=== PATIENT | female | born 1960 | race Caucasian/White ===

== ENCOUNTER → 2016-11-11 | Outpatient (CLI) | payer BC ==
[~2016-11-11] MED LIST: ALLEGRA 180MG180 MG PO; MULTI VITAMINS1 TAB PO; NATURE'S BLE1000 MCG PO; PRAVACHOL 20MG20 MG PO; SINGULAIR 110 MG/TAB PO; SYNTHROID0.075 MG/T PO
== END ==
LOC: COL.RAD 13:21
DX: E04.1 Nontoxic single thyroid nodule (principal)

== ENCOUNTER → 2016-12-03 | Outpatient (CLI) | payer BC ==
[~2016-12-03] VITALS: Ht 162.6 cm; Wt 72.5 kg
[2016-12-03 10:20] VITALS: BP 131/78
[2016-12-03 11:14] VITALS: BP 137/86; PULSE 73
== END ==
LOC: COL.RAD 09:39
DX: E04.1 Nontoxic single thyroid nodule (principal)
CPT/HCPCS: 13756

== ENCOUNTER → 2017-02-17 | Outpatient (CLI) | payer BC | LOC: COL.RAD 12:02 | DX: R42 Dizziness and giddiness (principal); R11.10 Vomiting, unspecified; R49.0 Dysphonia | CPT/HCPCS: A9585 ==

== ENCOUNTER → 2017-03-04 | Outpatient (CLI) | payer BC | LOC: COL.RAD 09:22 | DX: E04.1 Nontoxic single thyroid nodule (principal) ==

== ENCOUNTER → 2017-04-17 | Outpatient (CLI) | payer BC ==
[~2017-04-17] MED LIST changes: +ASPIRIN E.C. 8181 MG PO; +CITRACAL + D CA1 TAB PO; +PROTONIX 40MG T40 MG PO
== END ==
LOC: MC.RAD 16:30
DX: Z12.31 Encounter for screening mammogram for malignant neoplasm of breast (principal)

== ENCOUNTER 2017-04-23 12:00 | Outpatient (CLI) | payer BC ==
[~2017-04-23] VITALS: Ht 162.6 cm; Wt 72.7 kg
[~2017-04-23 12:00] MED LIST changes: -ASPIRIN E.C. 8181 MG PO; -CITRACAL + D CA1 TAB PO; -PROTONIX 40MG T40 MG PO
[2017-04-23 12:30] VITALS: BP 116/71; PULSE 57; TEMP 97.7
[2017-04-23] MEDS ORDERED: SYNTHROID0.075 MG/T PO (12:33)
[2017-04-23] MEDS ORDERED: PROTONIX 40MG T40 MG PO (12:35)
[2017-04-23] MEDS ORDERED: CITRACAL + D CA1 TAB PO (12:37)
[2017-04-23] MEDS ORDERED: ASPIRIN E.C. 8181 MG PO (12:38)
== END 2017-04-23 13:40 | disposition home or self-care (01) ==
LOC: EUO 12:00
DX: M81.0 Age-related osteoporosis without current pathological fracture (principal)
CPT/HCPCS: J3489

== ENCOUNTER → 2017-12-15 | Outpatient (CLI) | payer BC ==
[~2017-12-15] MED LIST changes: +ASPIRIN E.C. 8181 MG PO; +CITRACAL + D CA1 TAB PO; +PROTONIX 40MG T40 MG PO
== END ==
LOC: COL.RAD 07:47
DX: K44.9 Diaphragmatic hernia without obstruction or gangrene (principal); K21.9 Gastro-esophageal reflux disease without esophagitis

== ENCOUNTER → 2018-04-21 | Outpatient (CLI) | payer BC | LOC: MC.RAD 16:57 | DX: Z12.31 Encounter for screening mammogram for malignant neoplasm of breast (principal) ==

== ENCOUNTER 2018-04-24 16:07 | Outpatient (CLI) | payer BC ==
[~2018-04-24] VITALS: Ht 162.6 cm; Wt 65.7 kg
[2018-04-24 16:59] VITALS: BP 109/67; PULSE 66; TEMP 97.6
== END 2018-04-24 17:06 | disposition home or self-care (01) ==
LOC: EUO 16:07
DX: M81.0 Age-related osteoporosis without current pathological fracture (principal)
CPT/HCPCS: J3489

== ENCOUNTER → 2019-04-22 | Outpatient (CLI) | payer BC ==
[~2019-04-22] MED LIST changes: +MAGNESIUM500 MG PO; +SYNTHROID0.088 MG/T PO; +VITAMIN D31000 I1 PO
== END ==
LOC: MC.RAD 16:38
DX: Z12.31 Encounter for screening mammogram for malignant neoplasm of breast (principal)

== ENCOUNTER 2019-04-26 13:02 | Outpatient (CLI) | payer BC ==
[~2019-04-26] VITALS: Ht 162.6 cm; Wt 60.0 kg
[~2019-04-26 13:02] MED LIST changes: -MAGNESIUM500 MG PO; -SYNTHROID0.088 MG/T PO; -VITAMIN D31000 I1 PO
[2019-04-26 13:40] VITALS: BP 105/69; PULSE 65; TEMP 98.5
[2019-04-26] MEDS ORDERED: SYNTHROID0.088 MG/T PO (14:13)
[2019-04-26] MEDS ORDERED: VITAMIN D31000 I1 PO (14:14)
[2019-04-26] MEDS ORDERED: MAGNESIUM500 MG PO (14:15)
--- NOTE | 2019-04-26 14:25 | NUR ---
Pt renae reclast well. Pt discharged per ambulation.
== END 2019-04-26 16:52 | disposition home or self-care (01) ==
LOC: EUO 13:02
DX: Z12.31 Encounter for screening mammogram for malignant neoplasm of breast (principal); M81.0 Age-related osteoporosis without current pathological fracture
CPT/HCPCS: J3489

== ENCOUNTER 2020-05-25 14:53 | Outpatient (CLI) | payer BC ==
[~2020-05-25 14:53] MED LIST changes: +MAGNESIUM500 MG PO; +SYNTHROID0.088 MG/T PO; +VITAMIN D31000 I1 PO
[2020-05-25] MEDS ORDERED: ZYRTEC 10MG10 MG PO (15:47)
[2020-05-25] MEDS ORDERED: FLONASEALLERGY NS (15:47)
[2020-05-25 15:49] VITALS: BP 106/71; PULSE 69; TEMP 98.5
== END 2020-05-25 15:20 | disposition home or self-care (01) ==
LOC: EUO 14:53
DX: Z01.89 Encounter for other specified special examinations (principal)
CPT/HCPCS: J3489

== ENCOUNTER → 2020-08-22 | Outpatient (CLI) | payer BC ==
[~2020-08-22] MED LIST changes: +FLONASEALLERGY NS; +ZYRTEC 10MG10 MG PO
== END ==
LOC: COL.RAD 09:45
DX: M53.3 Sacrococcygeal disorders, not elsewhere classified (principal); Z90.710 Acquired absence of both cervix and uterus

== ENCOUNTER 2021-05-11 12:43 | Outpatient (CLI) | payer BC ==
[2021-05-11 13:35] VITALS: BP 114/74; PULSE 60; TEMP 97.9
== END 2021-05-11 17:10 | disposition home or self-care (01) ==
LOC: EUO
DX: M81.0 Age-related osteoporosis without current pathological fracture (principal)
CPT/HCPCS: J3489

== ENCOUNTER → 2021-05-11 | Outpatient (CLI) | payer BC | LOC: MC.RAD 06:52 | DX: N64.89 Other specified disorders of breast (principal) ==

== ENCOUNTER → 2021-11-19 | Outpatient (CLI) | payer BC | LOC: MC.RAD 06:57 | DX: N64.89 Other specified disorders of breast (principal) ==

== ENCOUNTER → 2022-05-27 | Outpatient (CLI) | payer BC | LOC: MC.RAD 06:48 | DX: Z12.31 Encounter for screening mammogram for malignant neoplasm of breast (principal) ==